=== PATIENT | male | born 1960 | race Caucasian/White ===

== ENCOUNTER → 2016-09-04 | Outpatient (CLI) | payer MEDICARE ==
--- NOTE | 2016-09-04 16:15 | REP ---
CT CHEST WITHOUT IV CONTRAST: CT chest was performed. No IV contrast was administered. Sagittal and coronal reconstruction images are performed. There are scattered interstitial fibrotic changes with mild upper lobe emphysematous changes and mild central bronchiectasis. No suspicious nodular opacities are seen. There is no pleural or pericardial effusion. Normal size mediastinal lymph nodes are present. There is no thoracic aortic aneurysm. Heart is normal in size. Visualized upper abdominal structures are unremarkable. There are mild degenerative changes of the spine. IMPRESSION: Mild chronic fibrotic changes as well as emphysematous changes and mild bronchiectasis. No suspicious abnormalities. Signed by Fabricio Palomo MD 09/04/2016 04:42 P
== END ==
LOC: M RAD 14:57
PROVIDERS: ATTEND Nurse Practitioner Family
DX: Z87.891 Personal history of nicotine dependence (principal)

== ENCOUNTER → 2016-10-08 | Outpatient (CLI) | payer MEDICARE ==
[~2016-10-08] VITALS: Ht 175.3 cm; Wt 74.8 kg
[~2016-10-08] MED LIST: GLYCOPYRROLATE INJ 0.2 MG/ML 2 ML VIAL As Ordered ONE; LIDOCAINE 2% INJ 100 MG/5 ML SDV (FOR ANES.) As Ordered ONE; MELO15TA4 PO; NS 1,000 ML IV ONE; PROPOFOL 500 MG/50 ML VIAL As Ordered ONE; ePHEDrine SULFATE 25 MG/5 ML(5MG/ML) SYRINGE As Ordered ONE
--- NOTE | 2016-10-08 09:29 | ROOR ---
Patient Name: Kemal Harvey Procedure Date: 10/08/2016 9:08 AM Date of : 1960 Age: 55 Room: [facility], [facility]IN [facility] Gender: Male Note Status: Finalized Procedure: Colonoscopy to Cecum Indications: High risk colon cancer surveillance: Personal history of colonic polyps, Last colonoscopy: 2009 Providers: Cornel Markham MD Referring MD: Saritha Cole NP Requesting Provider: Medicines: Monitored Anesthesia Care Complications: No immediate complications. Procedure: Pre-Anesthesia Assessment: - The heart rate, respiratory rate, oxygen saturations, blood pressure, adequacy of pulmonary ventilation, and response to care were monitored throughout the procedure. The Colonoscope was introduced through the anus and advanced to the cecum, identified by appendiceal orifice and ileocecal valve. The colonoscopy was performed without difficulty. The patient tolerated the procedure well. The quality of the bowel preparation was excellent. Findings: The perianal and digital rectal examinations were normal. Non-bleeding internal hemorrhoids were found during retroflexion. The hemorrhoids were small and Grade I (internal hemorrhoids that do not prolapse). Multiple small and large-mouthed diverticula were found in the recto-sigmoid colon, sigmoid colon and descending colon. No other significant abnormalities were identified in a careful examination of the remainder of the colon. Impression: - Non-bleeding internal hemorrhoids. - Diverticulosis in the recto-sigmoid colon, in the sigmoid colon and in the descending colon. - No specimens collected. Recommendation: - Discharge patient to home. - Continue present medications. - Repeat colonoscopy in 5 years for surveillance. - Return to referring physician. - The findings and recommendations were discussed with the patient's family. Cornel Markham MD Cornel Markham MD 10/08/2016 9:28:28 AM This report has been signed electronically. Number of Addenda: 0 Note Initiated On: 10/08/2016 9:08 AM Estimated Blood Loss: Estimated blood loss: none.
[2016-10-08 09:45] VITALS: BP 111/69
== END | disposition home or self-care (01) ==
LOC: M OPP 08:36
PROVIDERS: ATTEND Internal Medicine Gastroenterology
DX: Z12.11 Encounter for screening for malignant neoplasm of colon (principal); Z86.010 Personal history of colon polyps; K64.0 First degree hemorrhoids; K57.30 Diverticulosis of large intestine without perforation or abscess without bleeding; K21.9 Gastro-esophageal reflux disease without esophagitis; M19.90 Unspecified osteoarthritis, unspecified site; F17.210 Nicotine dependence, cigarettes, uncomplicated; F12.20 Cannabis dependence, uncomplicated; Z79.899 Other long term (current) drug therapy

== ENCOUNTER → 2017-06-04 | Outpatient (CLI) | payer MEDICARE, MEDICAID | LOC: M WUC 15:00 | DX: S60.212A Contusion of left wrist, initial encounter (principal); M19.032 Primary osteoarthritis, left wrist; X58.XXXA Exposure to other specified factors, initial encounter; Y92.9 Unspecified place or not applicable; Y93.9 Activity, unspecified | CPT/HCPCS: 73110 ==

== ENCOUNTER → 2017-07-11 | Outpatient (CLI) | payer MEDICARE, MEDICAID ==
[2017-07-11 10:57] LABS: HEMOGLOBIN 15.7 g/dl (14.0-18.0); MEAN CORPUSCULAR HEMOGLOBIN 31.3 pg (27.0-33.0); MEAN CORPUSCULAR HGB CONC 34.1 g/dl (32.0-36.5); MEAN CORPUSCULAR VOLUME 91.8 fl (80.0-96.0); PLATELET COUNT, AUTOMATED 465 10^3/uL (150-450); RED BLOOD COUNT 5.01 10^6/uL (4.30-6.10); RED CELL DISTRIBUTION WIDTH 14.7 % (11.5-14.5); WHITE BLOOD COUNT 9.6 10^3/uL (4.0-10.0)
[2017-07-11 11:09] LABS: ESTIMATED AVERAGE GLUCOSE 108 MG/DL (60-110); HEMOGLOBIN A1c 5.4 %
[2017-07-11 11:22] LABS: ALBUMIN 3.6 GM/DL (3.2-5.2); ALBUMIN/GLOBULIN RATIO 0.97 (1.00-1.93); ALKALINE PHOSPHATASE 82 U/L (45-117); ALT/SGPT 19 U/L (12-78); ANION GAP 3 MEQ/L (8-16); AST/SGOT 15 U/L (7-37); BILIRUBIN,TOTAL 0.2 MG/DL (0.2-1.0); BLOOD UREA NITROGEN 12 MG/DL (7-18); CARBON DIOXIDE LEVEL 31 MEQ/L (21-32); CHLORIDE LEVEL 105 MEQ/L (98-107); CHOLESTEROL LEVEL 162 MG/DL (<200); CHOLESTEROL RISK RATIO 2.793 (<5); CREATININE FOR GFR 0.92 MG/DL (0.70-1.30); GLOMERULAR FILTRATION RATE > 60.0 (>56); GLUCOSE, FASTING 102 MG/DL (70-100); HDL CHOLESTEROL 58 MG/DL (>40); LDL CHOLESTEROL 87.4 MG/DL (<100); NON-HDL-C 104 MG/DL; POTASSIUM SERUM 4.7 MEQ/L (3.5-5.1); PROSTATIC SPECIFIC AG MONITOR 2.06 NG/ML (< 4.0); SODIUM LEVEL 139 MEQ/L (136-145); THYROID STIMULATING HORMONE 0.227 uIU/ML (0.358-3.740); TOTAL PROTEIN 7.3 GM/DL (6.4-8.2); TRIGLYCERIDES LEVEL 83 MG/DL (<150)
== END ==
LOC: M LAB 09:42
DX: I10 Essential (primary) hypertension (principal); R73.01 Impaired fasting glucose; N40.0 Benign prostatic hyperplasia without lower urinary tract symptoms
CPT/HCPCS: 71046

== ENCOUNTER 2019-01-18 12:23 | Emergency (ER) | payer OTHER, MEDICARE, MEDICAID ==
[~2019-01-18] VITALS: Ht 175.3 cm; Wt 68.2 kg
[~2019-01-18 12:23] MED LIST changes: -GLYCOPYRROLATE INJ 0.2 MG/ML 2 ML VIAL As Ordered ONE; -LIDOCAINE 2% INJ 100 MG/5 ML SDV (FOR ANES.) As Ordered ONE; +MELO15TA28 PO; -MELO15TA4 PO; -NS 1,000 ML IV ONE; -PROPOFOL 500 MG/50 ML VIAL As Ordered ONE; -ePHEDrine SULFATE 25 MG/5 ML(5MG/ML) SYRINGE As Ordered ONE
[2019-01-18] MEDS ORDERED: ISOVUE-370 76% 100ML VIAL (Q9967) As Ordered ONE (12:54)
[2019-01-18] MEDS ORDERED: NS 1,000 ML IV ONE (13:00)
[2019-01-18 13:18] LABS: HEMOGLOBIN 14.9 g/dl (13.5-17.5); MEAN CORPUSCULAR HEMOGLOBIN 31.3 pg (27.0-33.0); MEAN CORPUSCULAR HGB CONC 33.9 g/dl (32.0-36.5); MEAN CORPUSCULAR VOLUME 92.4 fl (80.0-96.0); PLATELET COUNT, AUTOMATED 430 10^3/uL (150-450); RED BLOOD COUNT 4.76 10^6/uL (4.30-6.10); WHITE BLOOD COUNT 21.4 10^3/uL (4.0-10.0)
[2019-01-18 13:29] LABS: INR 0.92; PROTHROMBIN TIME 12.1 SECONDS (11.8-14.0)
[2019-01-18 13:30] LABS: PARTIAL THROMBOPLASTIN TIME 26.4 SECONDS (25.0-38.4)
[2019-01-18 13:40] LABS: ALBUMIN 3.8 GM/DL (3.2-5.2); ALT/SGPT 36 U/L (12-78); BILIRUBIN,DIRECT < 0.1 MG/DL (0.0-0.2); BILIRUBIN,TOTAL < 0.1 MG/DL (0.2-1.0); CK-MB VALUE MASS 11.3 NG/ML (<3.6); CPK CREATINE PHOSPHOKINASE 752 U/L (39-308); TOTAL PROTEIN 7.5 GM/DL (6.4-8.2); TROPONIN I < 0.02 NG/ML (< 0.10)
[2019-01-18] MEDS ORDERED: KETOROLAC 30 MG/ML VIAL (J1885) IV ONE (15:15)
[2019-01-18 15:57] LABS: AMPHETAMINES LEVEL URINE NEGATIVE (NEGATIVE); BARBITURATES URINE NEGATIVE (NEGATIVE); BENZODIAZEPINES URINE NEGATIVE (NEGATIVE); CANNABINOIDS URINE POSITIVE (NEGATIVE); COCAINE METABOLITE URINE POSITIVE (NEGATIVE); METHADONE URINE NEGATIVE (NEGATIVE); OPIATES URINE NEGATIVE (NEGATIVE); PHENCYCLIDINE URINE NEGATIVE (NEGATIVE)
[2019-01-18] MEDS ORDERED: IPRATROPIUM 0.5MG/ALBUTEROL 2.5MG INH SOL UD 3ML (DUONEB)(J7620) NEB ONE (16:00)
[2019-01-18] MEDS ORDERED: PROAAER10 INH (16:05)
[2019-01-18] MEDS ORDERED: KETO10TAB PO (16:05)
[2019-01-18 16:59] VITALS: BP 130/80
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
== END 2019-01-18 17:00 | disposition home or self-care (01) ==
LOC: M ED 12:23
DX: S27.321A Contusion of lung, unilateral, initial encounter (principal); S22.32XA Fracture of one rib, left side, initial encounter for closed fracture; V49.49XA Driver injured in collision with other motor vehicles in traffic accident, initial encounter; Y92.410 Unspecified street and highway as the place of occurrence of the external cause; F17.210 Nicotine dependence, cigarettes, uncomplicated
CPT/HCPCS: 70450; 71260; 72125; 73502; 74177; 80047; 80076; 80307; 81001; 82550; 82553; 84484; 85027; 85610; 85730; 94010; 94640; 96374; 99284; G0480; J1885; Q9967

== ENCOUNTER → 2019-01-29 | Outpatient (CLI) | payer OTHER, MEDICARE ==
[~2019-01-29] MED LIST changes: +KETO10TAB PO; +PROAAER10 INH
[2019-01-29 11:37] LABS: HEMATOCRIT 39.8 % (42.0-52.0); HEMOGLOBIN 13.3 g/dl (13.5-17.5); MEAN CORPUSCULAR HEMOGLOBIN 30.9 pg (27.0-33.0); MEAN CORPUSCULAR HGB CONC 33.4 g/dl (32.0-36.5); MEAN CORPUSCULAR VOLUME 92.6 fl (80.0-96.0); PLATELET COUNT, AUTOMATED 596 10^3/uL (150-450); WHITE BLOOD COUNT 11.3 10^3/uL (4.0-10.0)
[2019-01-29 12:13] LABS: ALBUMIN 3.1 GM/DL (3.2-5.2); ALT/SGPT 19 U/L (12-78); BILIRUBIN,TOTAL 0.2 MG/DL (0.2-1.0); BLOOD UREA NITROGEN 17 MG/DL (7-18); CALCIUM LEVEL 8.9 MG/DL (8.8-10.2); CARBON DIOXIDE LEVEL 28 MEQ/L (21-32); CHLORIDE LEVEL 106 MEQ/L (98-107); CREATININE FOR GFR 0.95 MG/DL (0.70-1.30); GLOMERULAR FILTRATION RATE > 60.0 (>49); GLUCOSE, FASTING 89 MG/DL (70-100); POTASSIUM SERUM 4.6 MEQ/L (3.5-5.1); SODIUM LEVEL 139 MEQ/L (136-145); THYROID STIMULATING HORMONE 0.079 uIU/ML (0.358-3.740); TOTAL PROTEIN 6.6 GM/DL (6.4-8.2)
--- NOTE | 2019-01-29 21:28 | REP ---
Clinical: COPD . Comparison: 07/11/2017 . Technique: PA and lateral. Findings: The mediastinum and cardiac silhouette are normal. The lung uribe the straight stable chronic COPD and interstitial changes without acute consolidation, effusion, or pneumothorax. The skeletal structures are intact and normal. Impression: 1. Chronic interstitial changes and changes related to COPD. Electronically Signed by Gaurav Rodriguez MD 01/29/2019 09:19 P
== END ==
LOC: M LAB 10:36
PROVIDERS: ATTEND Family Medicine
DX: D64.9 Anemia, unspecified (principal); R53.83 Other fatigue; J44.9 Chronic obstructive pulmonary disease, unspecified

== ENCOUNTER → 2019-03-10 | Outpatient (REF) | payer MEDICARE ==
[2019-03-10 16:35] LABS: FREE T4 1.04 NG/DL (0.76-1.46)
[2019-03-10 16:46] LABS: TOTAL T3 125.2 NG/DL (60.0-181.0)
== END ==
LOC: M LABDRAW1 15:30
PROVIDERS: ATTEND Internal Medicine Endocrinology, Diabetes & Metabolism
DX: R94.6 Abnormal results of thyroid function studies (principal)

== ENCOUNTER → 2019-03-25 | Outpatient (CLI) | payer MEDICARE, MEDICAID ==
--- NOTE | 2019-03-26 17:10 | REP ---
NUCLEAR THYROID UPTAKE AND SCAN: Following the oral administration of 374 microcuries of Iodine 123 sodium iodine, thyroid uptake is measured. The 24 hour uptake is 9.52% which is below the normal range of 25-35%. Thyroid scan shows mild enlargement of both lobes. Both lobes measure 5-6 cm in length. No focal hot or cold nodule is seen. IMPRESSION: Decreased 24-hour uptake at 9.52%. Mild enlargement of both lobes of the thyroid without a focal hot or cold nodule. Electronically Signed by Fabricio Palomo MD 03/28/2019 11:01 A
== END ==
LOC: M RAD 12:06
PROVIDERS: ATTEND Internal Medicine Endocrinology, Diabetes & Metabolism
DX: R94.6 Abnormal results of thyroid function studies (principal)
CPT/HCPCS: 78012; A9516

== ENCOUNTER 2020-12-17 15:35 | Emergency (ER) | payer MEDICARE, OTHER ==
[~2020-12-17] VITALS: Ht 175.3 cm; Wt 72.7 kg
[2020-12-17 17:38] LABS: VENOUS HCO3 25.6 MEQ/L (23.0-27.0); VENOUS O2 SATURATION 60.1 % (60.0-80.0); VENOUS PARTIAL PRESSURE CO2 49.7 mmHg (38.0-50.0); VENOUS PARTIAL PRESSURE O2 31.3 mmHg (30.0-50.0); VENOUS STANDARD HCO3 22.7 MEQ/L; VENOUS TOTAL CO2 27.1 MEQ/L (24.0-28.0)
[2020-12-17 17:42] LABS: HEMATOCRIT 44.3 % (42.0-52.0); HEMOGLOBIN 14.4 g/dl (13.5-17.5); MEAN CORPUSCULAR HEMOGLOBIN 28.9 pg (27.0-33.0); MEAN CORPUSCULAR HGB CONC 32.5 g/dl (32.0-36.5); MEAN CORPUSCULAR VOLUME 88.8 fl (80.0-96.0); PLATELET COUNT, AUTOMATED 510 10^3/uL (150-450); RED BLOOD COUNT 4.99 10^6/uL (4.30-6.10)
[2020-12-17] MEDS ORDERED: dexameTHASONE 20MG/5ML VIAL (J1100 PER 1MG) IV ONE (17:55)
[2020-12-17] MEDS: COMBIVENT RESPIMAT 100-20MCG INHALER 4GM INH SCH ×3 (18:04→18:44)
[2020-12-17 18:08] LABS: WHITE BLOOD COUNT 13.4 10^3/uL (4.0-10.0)
[2020-12-17 18:10] LABS: BASOPHILS 1 % (0-1); EOSINOPHILS 4 % (0-3); LYMPHOCYTES 35 % (16-44); MONOCYTES 10 % (0-5); NEUTROPHILS 50 % (28-66); PLATELET ESTIMATE INCREASED (NORMAL)
[2020-12-17 18:14] LABS: ALBUMIN 3.4 GM/DL (3.2-5.2); ALT/SGPT 43 U/L (12-78); BILIRUBIN,DIRECT < 0.1 MG/DL (0.0-0.2); BILIRUBIN,TOTAL 0.3 MG/DL (0.2-1.0); BLOOD UREA NITROGEN 12 MG/DL (7-18); CALCIUM LEVEL 8.9 MG/DL (8.8-10.2); CARBON DIOXIDE LEVEL 29 MEQ/L (21-32); CHLORIDE LEVEL 105 MEQ/L (98-107); CK-MB VALUE MASS 3.2 NG/ML (<3.6); CPK CREATINE PHOSPHOKINASE 193 U/L (39-308); CREATININE FOR GFR 1.04 MG/DL (0.70-1.30); GLOMERULAR FILTRATION RATE > 60.0 (>49); GLUCOSE, FASTING 83 MG/DL (70-100); MB/CK RELATIVE INDEX 1.66 (< OR =4); NT-PRO BNP 58 PG/ML (<125); POTASSIUM SERUM 4.2 MEQ/L (3.5-5.1); SODIUM LEVEL 138 MEQ/L (136-145); THYROID STIMULATING HORMONE 0.267 uIU/ML (0.358-3.740); THYROXINE (T4) 10.2 UG/DL (4.5-12.0); TOTAL PROTEIN 7.2 GM/DL (6.4-8.2); TROPONIN I < 0.02 NG/ML (< 0.10)
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
[2020-12-17 19:45] VITALS: BP 135/84
[2020-12-17] MEDS ORDERED: PRED20TA PO (20:27)
[2020-12-17] MEDS ORDERED: PROAAER10 INH (20:27)
--- NOTE | 2020-12-18 22:04 | ECGEPIP ---
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
== END 2020-12-17 20:44 | disposition home or self-care (01) ==
LOC: M ED 15:35
DX: J44.1 Chronic obstructive pulmonary disease with (acute) exacerbation (principal); E78.5 Hyperlipidemia, unspecified; G89.29 Other chronic pain; M54.9 Dorsalgia, unspecified; F17.210 Nicotine dependence, cigarettes, uncomplicated
CPT/HCPCS: 71045; 80048; 80076; 82550; 82553; 82803; 83605; 83880; 84436; 84443; 84484; 85025; 87798; 93005; 93041; 94640; 94664; 96374; 99285; J1100

== ENCOUNTER 2022-11-10 19:27 | Emergency (ER) | payer MEDICARE, MEDICAID ==
[~2022-11-10] VITALS: Ht 175.3 cm; Wt 80.8 kg
[~2022-11-10 19:27] MED LIST changes: +PRED20TA PO
[2022-11-10 19:28] VITALS: BP 147/88; TEMP 98.5; O2SAT 97
== END 2022-11-10 21:15 | disposition left against medical advice (07) ==
LOC: M ED 19:27
DX: Z53.21 Procedure and treatment not carried out due to patient leaving prior to being seen by health care provider (principal)

== ENCOUNTER 2025-01-26 22:12 | Emergency (ER) | payer MEDICARE, MEDICAID ==
[~2025-01-26] VITALS: Ht 175.3 cm; Wt 77.5 kg
[2025-01-26 22:22] VITALS: TEMP 97.3
[2025-01-26] MEDS ORDERED: traMADol 50 MG TAB PO ONE (23:25)
[2025-01-26] MEDS ORDERED: IBUPROFEN 600 MG TAB PO ONE (23:25)
[2025-01-27] MEDS: KETOROLAC 60 MG/2 ML VIAL IM ONE (00:40)
[2025-01-27] MEDS: LIDOCAINE 2% MDV 20 ML VIAL SC ONE (00:44)
[2025-01-27] MEDS: PERCOCET 5MG/325MG TAB PO ONE (01:16)
[2025-01-27] MEDS ORDERED: PERC5TAB12 PO (02:20)
[2025-01-27] MEDS ORDERED: CEPH500C PO (02:22)
[2025-01-27 02:30] VITALS: BP 125/72; O2SAT 98
[2025-01-27] MEDS: CEPHALEXIN 500 MG CAP PO ONE (02:34)
[2025-01-27] MEDS: OXYCODONE/APAP 5MG/325MG(HOME DOSE PACK) PO ONE (02:36)
== END 2025-01-27 02:56 | disposition home or self-care (01) ==
LOC: M ED 22:12
DX: S51.011A Laceration without foreign body of right elbow, initial encounter (principal); S50.811A Abrasion of right forearm, initial encounter; S50.812A Abrasion of left forearm, initial encounter; V49.40XA Driver injured in collision with unspecified motor vehicles in traffic accident, initial encounter; Y92.410 Unspecified street and highway as the place of occurrence of the external cause; Y93.89 Activity, other specified; Y99.8 Other external cause status; Z79.899 Other long term (current) drug therapy
CPT/HCPCS: 12004; 73080; 73090; 73564; 73610; 96372; 99284; J1885